=== PATIENT | male | born 1950 | race Caucasian/White ===

== ENCOUNTER → 2023-08-26 11:30 | Outpatient (REF) | payer MEDICARE, OTHER, SELFPAY ==
[2023-08-26 11:52] LABS: Urine Albumin Negative (Neg - Trace); Urine Bilirubin Negative (Negative); Urine Character Slightly Cloudy (Clear); Urine Color Yellow; Urine Glucose Negative (Negative); Urine Ketone Negative (Negative); Urine Leukocyte Trace (Negative); Urine Nitrite Negative (Negative); Urine Occult Blood Negative (Negative); Urine Urobilinogen Negative (Neg - 1+)
[2023-08-26 12:21] LABS: Urine Bacteria Many (Negative); Urine Red Blood Cell 0-2 /HPF (0-2); Urine Squamous Cell 0-2 /LPF (Few)
== END ==
LOC: REG 11:30
PROVIDERS: ATTENDING PHYSICIAN Obstetrics & Gynecology
DX: N30.00 Acute cystitis without hematuria (principal)
CPT/HCPCS: 81003; 81015; 87077; 87086; 87186

== ENCOUNTER → 2023-09-04 | Outpatient (REF) | payer MEDICARE, OTHER, SELFPAY | LOC: DHSLP | PROVIDERS: ATTENDING PHYSICIAN Internal Medicine Critical Care Medicine; FAMILY PHYSICIAN Internal Medicine | DX: G47.33 Obstructive sleep apnea (adult) (pediatric) (principal) | CPT/HCPCS: 95800 ==

== ENCOUNTER → 2023-09-22 10:32 | Outpatient (REF) | payer MEDICARE, OTHER, SELFPAY ==
[2023-09-22 11:47] LABS: Urine Albumin Negative (Neg - Trace); Urine Bilirubin Negative (Negative); Urine Character Clear (Clear); Urine Color Yellow; Urine Glucose Negative (Negative); Urine Ketone Negative (Negative); Urine Leukocyte 1+ (Negative); Urine Nitrite Positive (Negative); Urine Occult Blood Trace (Negative); Urine Urobilinogen Negative (Neg - 1+)
[2023-09-22 12:45] LABS: Urine Bacteria Many (Negative); Urine Red Blood Cell 0-2 /HPF (0-2); Urine Squamous Cell 0-2 /LPF (Few); Urine White Cell 21-25 /HPF (0-5)
== END ==
LOC: REG 10:32
PROVIDERS: ATTENDING PHYSICIAN Obstetrics & Gynecology
DX: N39.0 Urinary tract infection, site not specified (principal)
CPT/HCPCS: 81003; 81015; 87077; 87086; 87186

== ENCOUNTER → 2023-10-05 10:50 | Outpatient (REF) | payer MEDICARE, OTHER, SELFPAY ==
[2023-10-05 13:02] LABS: Urine Albumin Negative (Neg - Trace); Urine Bilirubin Negative (Negative); Urine Character Clear (Clear); Urine Color Yellow; Urine Glucose Negative (Negative); Urine Ketone Negative (Negative); Urine Leukocyte 2+ (Negative); Urine Nitrite Positive (Negative); Urine Occult Blood Negative (Negative); Urine Specific Gravity 1.015 (<1.030); Urine Urobilinogen Negative (Neg - 1+)
[2023-10-05 14:01] LABS: Urine Bacteria Many (Negative); Urine White Cell 80-90 /HPF (0-5)
== END ==
LOC: REG 10:50
PROVIDERS: ATTENDING PHYSICIAN Obstetrics & Gynecology
DX: N39.0 Urinary tract infection, site not specified (principal)
CPT/HCPCS: 81003; 81015; 87077; 87086; 87186

== ENCOUNTER → 2023-10-20 11:20 | Outpatient (REF) | payer MEDICARE, OTHER, SELFPAY ==
[2023-10-20 11:59] LABS: Urine Albumin Negative (Neg - Trace); Urine Bilirubin Negative (Negative); Urine Character Slightly Cloudy (Clear); Urine Color Yellow; Urine Glucose Negative (Negative); Urine Ketone Negative (Negative); Urine Leukocyte 2+ (Negative); Urine Nitrite Negative (Negative); Urine Occult Blood Trace (Negative); Urine Specific Gravity 1.015 (<1.030); Urine Urobilinogen Negative (Neg - 1+)
[2023-10-20 12:11] LABS: Urine Bacteria Few (Negative); Urine Red Blood Cell 0-2 /HPF (0-2); Urine White Cell 16-20 /HPF (0-5)
== END ==
LOC: REG 11:20
PROVIDERS: ATTENDING PHYSICIAN Obstetrics & Gynecology
DX: N39.0 Urinary tract infection, site not specified (principal)
CPT/HCPCS: 81003; 81015; 87077; 87086; 87186

== ENCOUNTER → 2023-10-28 14:45 | Outpatient (REF) | payer MEDICARE, OTHER, SELFPAY | LOC: RCS 14:45 | PROVIDERS: ATTENDING PHYSICIAN Nuclear Medicine Nuclear Cardiology; FAMILY PHYSICIAN Internal Medicine | DX: I48.0 Paroxysmal atrial fibrillation (principal); I34.0 Nonrheumatic mitral (valve) insufficiency; R60.0 Localized edema | CPT/HCPCS: 93306 ==

== ENCOUNTER → 2023-11-03 10:42 | Outpatient (REF) | payer MEDICARE, OTHER, SELFPAY ==
[2023-11-03 11:52] LABS: Urine Albumin Negative (Neg - Trace); Urine Bilirubin Negative (Negative); Urine Character Clear (Clear); Urine Color Yellow; Urine Glucose Negative (Negative); Urine Ketone Negative (Negative); Urine Leukocyte 1+ (Negative); Urine Nitrite Positive (Negative); Urine Occult Blood Negative (Negative); Urine Urobilinogen Negative (Neg - 1+)
[2023-11-03 12:06] LABS: Urine Red Blood Cell 0-2 /HPF (0-2); Urine White Cell 30-40 /HPF (0-5)
[2023-11-03 12:10] LABS: Urine Bacteria Many (Negative)
== END ==
LOC: REG 10:42
PROVIDERS: ATTENDING PHYSICIAN Obstetrics & Gynecology
DX: N39.0 Urinary tract infection, site not specified (principal)
CPT/HCPCS: 81003; 81015; 87086; 87088; 87186

== ENCOUNTER → 2023-11-09 12:31 | Outpatient (REF) | payer MEDICARE, OTHER, SELFPAY ==
[2023-11-09 13:44] LABS: Urine Albumin Negative (Neg - Trace); Urine Bilirubin Negative (Negative); Urine Character Clear (Clear); Urine Color Yellow; Urine Glucose Negative (Negative); Urine Ketone Negative (Negative); Urine Leukocyte 1+ (Negative); Urine Nitrite Negative (Negative); Urine Occult Blood Negative (Negative); Urine Specific Gravity 1.015 (<1.030); Urine Urobilinogen Negative (Neg - 1+)
[2023-11-09 14:52] LABS: Urine Bacteria Many (Negative); Urine White Cell 30-40 /HPF (0-5)
== END ==
LOC: REG 12:31
PROVIDERS: ATTENDING PHYSICIAN Obstetrics & Gynecology
DX: N39.0 Urinary tract infection, site not specified (principal)
CPT/HCPCS: 81003; 81015; 87071; 87086; 87186

== ENCOUNTER → 2023-11-12 16:14 | Outpatient (REF) | payer MEDICARE, OTHER, SELFPAY ==
[2023-11-12 17:31] LABS: % Basophils 0.7 % (0-2); % Immature Granulocytes 0.7 % (0-0.5); % Lymphocytes 14.5 % (20.5-51.1); % Monocytes 7.5 % (1.7-9.3); % Neutrophils 75.6 % (42.2-75.2); Absolute Basophils 0.1 10^3/uL (0-0.2); Absolute Eosinophils 0.1 10^3/uL (0-0.7); Absolute Immature Granulocytes 0.1 10^3/uL (0-0.05); Absolute Lymphocytes 1.8 10^3/uL (1.2-3.4); Absolute Monocytes 0.9 10^3/uL (0.1-0.6); Absolute Neutrophils 9.4 10^3/uL (1.4-6.5); Hematocrit 42.8 % (39.0-52.0); Hemoglobin 13.9 g/dL (13.0-18.0); Mean Corp Hgb Conc. 32.5 g/dL (33.0-37.0); Mean Corpuscular Hgb 28.2 pg (27.0-31.0); Mean Corpuscular Volume 86.8 fL (80.0-94.0); Mean Platelet Volume 9.7 fL (7.4-10.4); Nucleated Red Blood Cells % 0 % (-); Platelet Count 248 10^3/uL (130-400); Red Blood Cell Count 4.93 10^6/uL (4.70-6.10); White Blood Cell Count 12.5 10^3/uL (4.8-10.8)
[2023-11-12 17:39] LABS: Blood Urea Nitrogen 15 mg/dl (9-20); Calcium 9.4 mg/dl (8.4-10.2); Carbon Dioxide 22 mmol/L (22-30); Chloride 107 mmol/L (98-107); Glucose 98 mg/dl (70-99); Sodium 139 mmol/L (135-145); eGFR > 60.00
== END ==
LOC: REG 16:14
PROVIDERS: ATTENDING PHYSICIAN Urology
DX: N31.9 Neuromuscular dysfunction of bladder, unspecified (principal); N39.0 Urinary tract infection, site not specified
CPT/HCPCS: 36415; 80048; 85025

== ENCOUNTER → 2023-11-19 11:37 | Outpatient (REF) | payer MEDICARE, OTHER, SELFPAY ==
[2023-11-19 12:42] LABS: Urine Albumin Negative (Neg - Trace); Urine Bilirubin Negative (Negative); Urine Character Slightly Cloudy (Clear); Urine Color Yellow; Urine Glucose Negative (Negative); Urine Ketone Negative (Negative); Urine Leukocyte 2+ (Negative); Urine Nitrite Negative (Negative); Urine Occult Blood Negative (Negative); Urine Specific Gravity 1.015 (<1.030); Urine Urobilinogen Negative (Neg - 1+)
[2023-11-19 13:05] LABS: Urine Bacteria Few (Negative); Urine Red Blood Cell 0-2 /HPF (0-2); Urine Squamous Cell 0-2 /LPF (Few); Urine White Cell 50-60 /HPF (0-5)
== END ==
LOC: REG 11:37
PROVIDERS: ATTENDING PHYSICIAN Obstetrics & Gynecology
DX: N39.0 Urinary tract infection, site not specified (principal)
CPT/HCPCS: 81003; 81015; 87086

== ENCOUNTER → 2024-01-15 08:54 | Outpatient (REF) | payer MEDICARE, OTHER, SELFPAY ==
[2024-01-15 09:35] LABS: Urine Albumin Negative (Neg - Trace); Urine Bilirubin Negative (Negative); Urine Character Slightly Cloudy (Clear); Urine Color Yellow; Urine Glucose Negative (Negative); Urine Ketone Negative (Negative); Urine Leukocyte 1+ (Negative); Urine Nitrite Positive (Negative); Urine Occult Blood Trace (Negative); Urine Urobilinogen Negative (Neg - 1+)
[2024-01-15 09:57] LABS: Urine Bacteria Many (Negative); Urine White Cell 26-30 /HPF (0-5)
== END ==
LOC: REG 08:54
PROVIDERS: ATTENDING PHYSICIAN Obstetrics & Gynecology
DX: N39.0 Urinary tract infection, site not specified (principal)
CPT/HCPCS: 81003; 81015; 87077; 87086; 87186

== ENCOUNTER → 2024-01-18 11:07 | Outpatient (REF) | payer MEDICARE, OTHER, SELFPAY | LOC: REG 11:07 | PROVIDERS: ATTENDING PHYSICIAN Obstetrics & Gynecology | DX: N39.0 Urinary tract infection, site not specified (principal) | CPT/HCPCS: 87086 ==

== ENCOUNTER → 2024-01-19 08:11 | Outpatient (REF) | payer MEDICARE, OTHER, SELFPAY ==
[2024-01-19 08:53] LABS: Urine Albumin Negative (Neg - Trace); Urine Bilirubin Negative (Negative); Urine Character Clear (Clear); Urine Color Yellow; Urine Glucose Negative (Negative); Urine Ketone Negative (Negative); Urine Leukocyte 1+ (Negative); Urine Nitrite Positive (Negative); Urine Occult Blood Negative (Negative); Urine Specific Gravity 1.015 (<1.030); Urine Urobilinogen Negative (Neg - 1+)
[2024-01-19 10:48] LABS: Urine Bacteria Many (Negative); Urine Red Blood Cell None Seen /HPF (0-2)
== END ==
LOC: REG 08:11
PROVIDERS: ATTENDING PHYSICIAN Obstetrics & Gynecology
DX: N39.0 Urinary tract infection, site not specified (principal)
CPT/HCPCS: 81003; 81015; 87077; 87086

== ENCOUNTER → 2024-01-27 12:00 | Outpatient (REF) | payer MEDICARE, OTHER, SELFPAY ==
[2024-01-27 20:47] LABS: Urine Albumin Negative (Neg - Trace); Urine Bilirubin Negative (Negative); Urine Character Clear (Clear); Urine Color Yellow; Urine Glucose Negative (Negative); Urine Ketone Negative (Negative); Urine Leukocyte 2+ (Negative); Urine Nitrite Positive (Negative); Urine Occult Blood Negative (Negative); Urine Specific Gravity 1.015 (<1.030); Urine Urobilinogen Negative (Neg - 1+)
[2024-01-27 20:59] LABS: Urine Bacteria Many (Negative); Urine Calcium Oxalate Crystals Present; Urine Red Blood Cell 0-2 /HPF (0-2); Urine White Cell 26-30 /HPF (0-5)
== END ==
LOC: REG 12:00
PROVIDERS: ATTENDING PHYSICIAN Obstetrics & Gynecology
DX: N39.0 Urinary tract infection, site not specified (principal)
CPT/HCPCS: 81003; 81015; 87077; 87086; 87186

== ENCOUNTER → 2024-02-25 11:20 | Outpatient (REF) | payer MEDICARE, OTHER, SELFPAY ==
[2024-02-25 12:17] LABS: % Basophils 0.8 % (0-2); % Eosinophils 2.3 % (0-6); % Immature Granulocytes 1.4 % (0-0.5); % Lymphocytes 19.8 % (20.5-51.1); % Monocytes 7.5 % (1.7-9.3); % Neutrophils 68.2 % (42.2-75.2); Absolute Basophils 0.1 10^3/uL (0-0.2); Absolute Eosinophils 0.2 10^3/uL (0-0.7); Absolute Immature Granulocytes 0.1 10^3/uL (0-0.05); Absolute Lymphocytes 1.8 10^3/uL (1.2-3.4); Absolute Monocytes 0.7 10^3/uL (0.1-0.6); Absolute Neutrophils 6.3 10^3/uL (1.4-6.5); Hematocrit 45.8 % (39.0-52.0); Hemoglobin 15.6 g/dL (13.0-18.0); Mean Corp Hgb Conc. 34.1 g/dL (33.0-37.0); Mean Corpuscular Hgb 29.8 pg (27.0-31.0); Mean Corpuscular Volume 87.6 fL (80.0-94.0); Mean Platelet Volume 9.7 fL (7.4-10.4); Nucleated Red Blood Cells % 0 % (-); Platelet Count 252 10^3/uL (130-400); Red Blood Cell Count 5.23 10^6/uL (4.70-6.10); Red Cell Dist. Width 14.2 % (11.5-14.5); White Blood Cell Count 9.2 10^3/uL (4.8-10.8)
[2024-02-25 12:47] LABS: ALT (SGPT) 24 U/L (0-50); AST (SGOT) 22 U/L (17-59); Albumin 4.2 g/dl (3.5-5.0); Alkaline Phosphatase 149 U/L (38-126); Blood Urea Nitrogen 20 mg/dl (9-20); Calcium 9.4 mg/dl (8.4-10.2); Carbon Dioxide 19 mmol/L (22-30); Chloride 108 mmol/L (98-107); Glucose 127 mg/dl (70-99); Potassium 3.9 mmol/L (3.5-5.1); Sodium 143 mmol/L (135-145); Total Bilirubin 0.5 mg/dl (0.2-1.3); Total Protein 6.8 g/dl (6.3-8.2); eGFR > 60.00
[2024-02-25 13:05] LABS: Urine Albumin Negative (Neg - Trace); Urine Bilirubin Negative (Negative); Urine Character Clear (Clear); Urine Color Yellow; Urine Glucose Negative (Negative); Urine Ketone Negative (Negative); Urine Leukocyte Negative (Negative); Urine Nitrite Negative (Negative); Urine Occult Blood Negative (Negative); Urine Urobilinogen Negative (Neg - 1+)
[2024-02-25 13:21] LABS: Glycohemoglobin (HgbA1c) 5.9 % (4.0-5.6)
== END ==
LOC: REG 11:20
PROVIDERS: ATTENDING PHYSICIAN Obstetrics & Gynecology; REFERRING PHYSICIAN Urology
DX: R73.03 Prediabetes (principal); M10.9 Gout, unspecified; E03.9 Hypothyroidism, unspecified; E78.00 Pure hypercholesterolemia, unspecified; N31.9 Neuromuscular dysfunction of bladder, unspecified; N39.0 Urinary tract infection, site not specified
CPT/HCPCS: 36415; 80053; 81003; 83036; 84443; 84550; 85025; 87086

== ENCOUNTER → 2024-04-02 11:28 | Outpatient (REF) | payer MEDICARE, OTHER, SELFPAY ==
[2024-04-02 12:25] LABS: Urine Albumin Negative (Neg - Trace); Urine Bilirubin Negative (Negative); Urine Character Clear (Clear); Urine Color Yellow; Urine Glucose Negative (Negative); Urine Ketone Negative (Negative); Urine Leukocyte 2+ (Negative); Urine Nitrite Negative (Negative); Urine Occult Blood Trace (Negative); Urine Specific Gravity 1.015 (<1.030); Urine Urobilinogen Negative (Neg - 1+)
[2024-04-02 13:19] LABS: Urine Mucus Few; Urine Squamous Cell 0-2 /LPF (Few)
[2024-04-02 13:21] LABS: Urine Amorphous Seen; Urine Bacteria Many (Negative); Urine White Cell 40-50 /HPF (0-5)
== END ==
LOC: REG 11:28
PROVIDERS: ATTENDING PHYSICIAN Obstetrics & Gynecology
DX: N39.0 Urinary tract infection, site not specified (principal)
CPT/HCPCS: 36415; 81003; 81015; 87077; 87086

== ENCOUNTER → 2024-04-12 11:46 | Outpatient (REF) | payer MEDICARE, OTHER, SELFPAY ==
[2024-04-12 17:03] LABS: Urine Albumin Negative (Neg - Trace); Urine Bilirubin Negative (Negative); Urine Character Clear (Clear); Urine Color Yellow; Urine Glucose Negative (Negative); Urine Ketone Negative (Negative); Urine Leukocyte 2+ (Negative); Urine Nitrite Positive (Negative); Urine Occult Blood Negative (Negative); Urine Urobilinogen Negative (Neg - 1+)
[2024-04-12 17:41] LABS: Urine Bacteria Many (Negative); Urine Red Blood Cell 0-2 /HPF (0-2); Urine Squamous Cell 0-2 /LPF (Few); Urine White Cell 70-80 /HPF (0-5)
== END ==
LOC: REG 11:46
PROVIDERS: ATTENDING PHYSICIAN Obstetrics & Gynecology
DX: N39.0 Urinary tract infection, site not specified (principal)
CPT/HCPCS: 81003; 81015; 87077; 87086; 87186

== ENCOUNTER → 2024-05-09 12:06 | Outpatient (REF) | payer MEDICARE, OTHER, SELFPAY ==
[2024-05-09 13:21] LABS: Urine Albumin Negative (Neg - Trace); Urine Bilirubin Negative (Negative); Urine Character Clear (Clear); Urine Color Yellow; Urine Glucose Negative (Negative); Urine Ketone Negative (Negative); Urine Leukocyte 2+ (Negative); Urine Nitrite Positive (Negative); Urine Occult Blood 1+ (Negative); Urine Specific Gravity 1.025 (<1.030); Urine Urobilinogen Negative (Neg - 1+)
[2024-05-09 14:48] LABS: Urine Calcium Oxalate Crystals Present; Urine Urothelial Cell 0-2 /LPF (FEW)
[2024-05-09 14:49] LABS: Urine Bacteria Many (Negative); Urine White Cell 40-50 /HPF (0-5)
== END ==
LOC: REG 12:06
PROVIDERS: ATTENDING PHYSICIAN Obstetrics & Gynecology
DX: N39.0 Urinary tract infection, site not specified (principal)
CPT/HCPCS: 81003; 81015; 87077; 87086; 87186

== ENCOUNTER → 2024-05-18 10:04 | Outpatient (REF) | payer MEDICARE, OTHER, SELFPAY ==
[2024-05-18 11:52] LABS: % Basophils 0.5 % (0-2); % Eosinophils 1.9 % (0-6); % Immature Granulocytes 1.5 % (0-0.5); % Lymphocytes 19.4 % (20.5-51.1); % Monocytes 7.3 % (1.7-9.3); % Neutrophils 69.4 % (42.2-75.2); Absolute Basophils 0.1 10^3/uL (0-0.2); Absolute Eosinophils 0.2 10^3/uL (0-0.7); Absolute Immature Granulocytes 0.1 10^3/uL (0-0.05); Absolute Lymphocytes 1.8 10^3/uL (1.2-3.4); Absolute Monocytes 0.7 10^3/uL (0.1-0.6); Absolute Neutrophils 6.5 10^3/uL (1.4-6.5); Hematocrit 48.9 % (39.0-52.0); Hemoglobin 15.8 g/dL (13.0-18.0); Mean Corp Hgb Conc. 32.3 g/dL (33.0-37.0); Mean Corpuscular Hgb 29.4 pg (27.0-31.0); Mean Corpuscular Volume 91.1 fL (80.0-94.0); Mean Platelet Volume 9.4 fL (7.4-10.4); Nucleated Red Blood Cells % 0 % (-); Platelet Count 262 10^3/uL (130-400); Red Blood Cell Count 5.37 10^6/uL (4.70-6.10); Red Cell Dist. Width 14.5 % (11.5-14.5); Urine Albumin Negative (Neg - Trace); Urine Bilirubin Negative (Negative); Urine Character Clear (Clear); Urine Color Yellow; Urine Glucose Negative (Negative); Urine Ketone Negative (Negative); Urine Leukocyte 1+ (Negative); Urine Nitrite Positive (Negative); Urine Occult Blood Trace (Negative); Urine Specific Gravity 1.015 (<1.030); Urine Urobilinogen Negative (Neg - 1+); White Blood Cell Count 9.3 10^3/uL (4.8-10.8)
[2024-05-18 12:02] LABS: Urine Bacteria Many (Negative); Urine White Cell 40-50 /HPF (0-5)
[2024-05-18 13:08] LABS: ALT (SGPT) 27 U/L (0-50); AST (SGOT) 24 U/L (17-59); Albumin 4.7 g/dl (3.5-5.0); Alkaline Phosphatase 130 U/L (38-126); Blood Urea Nitrogen 21 mg/dl (9-20); Calcium 9.6 mg/dl (8.4-10.2); Carbon Dioxide 25 mmol/L (22-30); Chloride 104 mmol/L (98-107); Glucose 97 mg/dl (70-99); HDL Cholesterol 41 mg/dl; LDL Cholesterol, Calculated 119 mg/dl; Potassium 4.5 mmol/L (3.5-5.1); Sodium 142 mmol/L (135-145); Total Cholesterol 186 mg/dl (50-199); Total Protein 7.7 g/dl (6.3-8.2); Triglyceride 133 mg/dl (10-149); Uric Acid 4.8 mg/dl (3.5-8.5); Very Low Density Lipoprotein 26 mg/dl (0-30); eGFR > 60.00
[2024-05-18 14:49] LABS: Glycohemoglobin (HgbA1c) 5.8 % (4.0-5.6)
== END ==
LOC: RCS 10:04
PROVIDERS: ATTENDING PHYSICIAN Nurse Practitioner Family; REFERRING PHYSICIAN Obstetrics & Gynecology
DX: N32.81 Overactive bladder (principal); M10.9 Gout, unspecified; E78.5 Hyperlipidemia, unspecified; N31.9 Neuromuscular dysfunction of bladder, unspecified; Z86.79 Personal history of other diseases of the circulatory system; J44.9 Chronic obstructive pulmonary disease, unspecified; K21.9 Gastro-esophageal reflux disease without esophagitis; E03.9 Hypothyroidism, unspecified; M10.40 Other secondary gout, unspecified site; R73.03 Prediabetes; N39.0 Urinary tract infection, site not specified
CPT/HCPCS: 36415; 80053; 80061; 81003; 81015; 83036; 84443; 84550; 85025; 87077; 87086; 87186; 93005

== ENCOUNTER → 2024-05-25 11:27 | Outpatient (REF) | payer MEDICARE, OTHER, SELFPAY ==
[2024-05-25 13:20] LABS: Urine Albumin Negative (Neg - Trace); Urine Bilirubin Negative (Negative); Urine Character Clear (Clear); Urine Color Yellow; Urine Glucose Negative (Negative); Urine Ketone Negative (Negative); Urine Leukocyte Negative (Negative); Urine Nitrite Negative (Negative); Urine Occult Blood Negative (Negative); Urine Specific Gravity 1.015 (<1.030); Urine Urobilinogen Negative (Neg - 1+)
== END ==
LOC: REG 11:27
PROVIDERS: ATTENDING PHYSICIAN Obstetrics & Gynecology
DX: N39.0 Urinary tract infection, site not specified (principal)
CPT/HCPCS: 81003

== ENCOUNTER → 2024-06-08 10:43 | Outpatient (REF) | payer MEDICARE, OTHER, SELFPAY ==
[2024-06-08 11:50] LABS: Urine Albumin Negative (Neg - Trace); Urine Bilirubin Negative (Negative); Urine Character Clear (Clear); Urine Color Yellow; Urine Glucose Negative (Negative); Urine Ketone Negative (Negative); Urine Leukocyte Trace (Negative); Urine Nitrite Positive (Negative); Urine Occult Blood Negative (Negative); Urine Urobilinogen Negative (Neg - 1+)
[2024-06-08 12:05] LABS: Urine Mucus Few; Urine Squamous Cell 0-2 /LPF (Few)
[2024-06-08 12:06] LABS: Urine Bacteria Many (Negative); Urine Red Blood Cell 0-2 /HPF (0-2); Urine White Cell 40-50 /HPF (0-5)
== END ==
LOC: REG 10:43
PROVIDERS: ATTENDING PHYSICIAN Obstetrics & Gynecology; FAMILY PHYSICIAN Internal Medicine
DX: N39.0 Urinary tract infection, site not specified (principal)
CPT/HCPCS: 81003; 81015; 87086; 87088; 87186

== ENCOUNTER → 2024-06-24 15:45 | Outpatient (REF) | payer MEDICARE, OTHER, SELFPAY ==
[2024-06-24 16:35] LABS: Urine Albumin Negative (Neg - Trace); Urine Bilirubin Negative (Negative); Urine Character Slightly Cloudy (Clear); Urine Color Yellow; Urine Glucose Negative (Negative); Urine Ketone Negative (Negative); Urine Leukocyte Trace (Negative); Urine Nitrite Positive (Negative); Urine Occult Blood Trace (Negative); Urine Urobilinogen Negative (Neg - 1+)
[2024-06-24 16:46] LABS: Urine Red Blood Cell 0-2 /HPF (0-2); Urine White Cell 26-30 /HPF (0-5)
[2024-06-24 16:47] LABS: Urine Bacteria Moderate (Negative)
== END ==
LOC: REG 15:45
PROVIDERS: ATTENDING PHYSICIAN Obstetrics & Gynecology
DX: N39.0 Urinary tract infection, site not specified (principal)
CPT/HCPCS: 81003; 81015; 87077; 87086; 87186

== ENCOUNTER → 2024-07-04 14:00 | Outpatient (REF) | payer MEDICARE, OTHER, SELFPAY ==
[2024-07-04 15:13] LABS: Urine Albumin Trace (Neg - Trace); Urine Bilirubin Negative (Negative); Urine Character Clear (Clear); Urine Color Yellow; Urine Glucose Negative (Negative); Urine Ketone Negative (Negative); Urine Leukocyte Trace (Negative); Urine Nitrite Positive (Negative); Urine Occult Blood Negative (Negative); Urine Urobilinogen Negative (Neg - 1+)
[2024-07-04 15:26] LABS: Urine Squamous Cell 0-2 /LPF (Few)
[2024-07-04 15:28] LABS: Urine Bacteria Many (Negative); Urine Red Blood Cell 0-2 /HPF (0-2); Urine White Cell 30-40 /HPF (0-5)
== END ==
LOC: REG 14:00
PROVIDERS: ATTENDING PHYSICIAN Obstetrics & Gynecology
DX: N39.0 Urinary tract infection, site not specified (principal)
CPT/HCPCS: 81003; 81015; 87077; 87086; 87186

== ENCOUNTER → 2024-07-30 07:10 | Outpatient (REF) | payer MEDICARE, OTHER, SELFPAY ==
[2024-07-30 08:31] LABS: Urine Albumin Negative (Neg - Trace); Urine Bilirubin Negative (Negative); Urine Character Clear (Clear); Urine Color Yellow; Urine Glucose Negative (Negative); Urine Ketone Negative (Negative); Urine Leukocyte 2+ (Negative); Urine Nitrite Negative (Negative); Urine Occult Blood Negative (Negative); Urine Urobilinogen Negative (Neg - 1+)
[2024-07-30 08:47] LABS: Urine Bacteria Moderate (Negative); Urine Red Blood Cell 0-2 /HPF (0-2); Urine Squamous Cell 0-2 /LPF (Few); Urine White Cell 26-30 /HPF (0-5)
== END ==
LOC: REG 07:10
PROVIDERS: ATTENDING PHYSICIAN Obstetrics & Gynecology
DX: N39.0 Urinary tract infection, site not specified (principal)
CPT/HCPCS: 81003; 81015; 87077; 87086; 87186

== ENCOUNTER → 2024-08-24 14:46 | Outpatient (REF) | payer MEDICARE, OTHER, SELFPAY ==
[2024-08-24 16:07] LABS: Urine Albumin 2+ (Neg - Trace); Urine Bilirubin Negative (Negative); Urine Character Slightly Cloudy (Clear); Urine Color Yellow; Urine Glucose Negative (Negative); Urine Ketone Negative (Negative); Urine Leukocyte 3+ (Negative); Urine Nitrite Negative (Negative); Urine Occult Blood 3+ (Negative); Urine Urobilinogen Negative (Neg - 1+)
[2024-08-24 16:20] LABS: Urine Bacteria Moderate (Negative); Urine Squamous Cell 0-2 /LPF (Few); Urine White Cell >100 /HPF (0-5)
== END ==
LOC: REG 14:46
PROVIDERS: ATTENDING PHYSICIAN Obstetrics & Gynecology
DX: N39.0 Urinary tract infection, site not specified (principal)
CPT/HCPCS: 81003; 81015; 87077; 87086; 87186

== ENCOUNTER → 2024-09-06 15:46 | Outpatient (REF) | payer MEDICARE, OTHER, SELFPAY ==
[2024-09-06 16:42] LABS: Urine Albumin 1+ (Neg - Trace); Urine Bilirubin Negative (Negative); Urine Character Slightly Cloudy (Clear); Urine Color Yellow; Urine Glucose Negative (Negative); Urine Ketone Negative (Negative); Urine Leukocyte 2+ (Negative); Urine Nitrite Positive (Negative); Urine Occult Blood 1+ (Negative); Urine Urobilinogen Negative (Neg - 1+)
[2024-09-06 17:13] LABS: Urine Bacteria Many (Negative); Urine Red Blood Cell 0-2 /HPF (0-2); Urine Squamous Cell 0-2 /LPF (Few); Urine White Cell 26-30 /HPF (0-5)
== END ==
LOC: REG 15:46
PROVIDERS: ATTENDING PHYSICIAN Obstetrics & Gynecology
DX: N39.0 Urinary tract infection, site not specified (principal)
CPT/HCPCS: 81003; 81015; 87077; 87086; 87186

== ENCOUNTER → 2024-09-14 08:26 | Outpatient (REF) | payer MEDICARE, OTHER, SELFPAY | LOC: DHSLP 08:26 | PROVIDERS: ATTENDING PHYSICIAN Internal Medicine Critical Care Medicine; FAMILY PHYSICIAN Internal Medicine | DX: G47.33 Obstructive sleep apnea (adult) (pediatric) (principal) | CPT/HCPCS: 95811 ==

== ENCOUNTER → 2024-11-09 13:20 | Outpatient (REF) | payer MEDICARE, OTHER, SELFPAY ==
[2024-11-09 14:40] LABS: Urine Albumin Negative (Neg - Trace); Urine Bilirubin Negative (Negative); Urine Character Clear (Clear); Urine Color Yellow; Urine Glucose Negative (Negative); Urine Ketone Negative (Negative); Urine Leukocyte 1+ (Negative); Urine Nitrite Negative (Negative); Urine Occult Blood 1+ (Negative); Urine Specific Gravity 1.025 (<1.030); Urine Urobilinogen Negative (Neg - 1+)
[2024-11-09 14:52] LABS: Urine Bacteria Many (Negative); Urine Red Blood Cell 0-2 /HPF (0-2); Urine Squamous Cell 0-2 /LPF (Few)
[2024-11-09 15:31] LABS: PSA, Total - Screen 1.54 ng/ml (0.0-4.0)
== END ==
LOC: REG 13:20
PROVIDERS: ATTENDING PHYSICIAN Obstetrics & Gynecology
DX: N39.0 Urinary tract infection, site not specified (principal); Z12.5 Encounter for screening for malignant neoplasm of prostate
CPT/HCPCS: 36415; 81003; 81015; 87077; 87086; G0103

== ENCOUNTER → 2025-02-02 12:08 | Outpatient (REF) | payer MEDICARE, OTHER, SELFPAY ==
[2025-02-02 14:13] LABS: Urine Character Slightly Cloudy (Clear)
[2025-02-02 14:32] LABS: ALT (SGPT) 21 U/L (0-50); AST (SGOT) 18 U/L (17-59); Albumin 4.4 g/dl (3.5-5.0); Alkaline Phosphatase 114 U/L (38-126); Blood Urea Nitrogen 16 mg/dl (9-20); Calcium 9.2 mg/dl (8.4-10.2); Carbon Dioxide 24 mmol/L (22-30); Chloride 108 mmol/L (98-107); Glucose 94 mg/dl (70-99); Potassium 4.2 mmol/L (3.5-5.1); Sodium 140 mmol/L (135-145); Total Protein 7.0 g/dl (6.3-8.2); Uric Acid 6.0 mg/dl (3.5-8.5); eGFR > 60.00
[2025-02-02 14:34] LABS: Urine Squamous Cell None seen /LPF (Few); Urine White Cell 26-30 /HPF (0-5)
[2025-02-02 14:37] LABS: C-Reactive Protein < 5.00 mg/L (0.0-10.00)
== END ==
LOC: REG 12:08
PROVIDERS: FAMILY PHYSICIAN Obstetrics & Gynecology
DX: M10.00 Idiopathic gout, unspecified site (principal); R73.03 Prediabetes; R19.7 Diarrhea, unspecified; N39.0 Urinary tract infection, site not specified; K22.70 Barrett's esophagus without dysplasia
CPT/HCPCS: 36415; 80053; 81003; 81015; 82784; 83516; 84550; 86140; 86231; 87077; 87086; 87186

== ENCOUNTER → 2025-02-07 13:12 | Outpatient (REF) | payer MEDICARE, OTHER, SELFPAY | LOC: RAD 13:12 | PROVIDERS: ATTENDING PHYSICIAN Internal Medicine Gastroenterology; FAMILY PHYSICIAN Internal Medicine Geriatric Medicine | DX: K52.9 Noninfective gastroenteritis and colitis, unspecified (principal) | CPT/HCPCS: 74177; Q9967 ==

== ENCOUNTER → 2025-03-02 11:31 | Outpatient (REF) | payer MEDICARE, OTHER, SELFPAY ==
[2025-03-03 16:07] LABS: Urine Character Clear (Clear)
[2025-03-03 16:24] LABS: Urine Squamous Cell 0-2 /LPF (Few)
[2025-03-03 16:25] LABS: Urine Red Blood Cell >100 /HPF (0-2)
== END ==
LOC: REG 11:31
PROVIDERS: ATTENDING PHYSICIAN Obstetrics & Gynecology
DX: N39.0 Urinary tract infection, site not specified (principal)
CPT/HCPCS: 81003; 81015; 87086; 87147; 87186

== ENCOUNTER → 2025-03-03 10:00 | Outpatient (REF) | payer MEDICARE, OTHER, SELFPAY ==
[2025-03-03 16:08] LABS: Urine Character Clear (Clear)
[2025-03-03 16:30] LABS: Urine Red Blood Cell >100 /HPF (0-2); Urine Squamous Cell 0-2 /LPF (Few)
== END ==
LOC: REG 10:00
PROVIDERS: ATTENDING PHYSICIAN Obstetrics & Gynecology
DX: N39.0 Urinary tract infection, site not specified (principal)
CPT/HCPCS: 81003; 81015; 87086

== ENCOUNTER → 2025-03-22 11:14 | Outpatient (REF) | payer MEDICARE, OTHER, SELFPAY ==
[2025-03-22 12:20] LABS: Urine Character Clear (Clear)
[2025-03-22 13:18] LABS: Urine Squamous Cell 0-2 /LPF (Few)
[2025-03-22 13:21] LABS: Urine White Cell >100 /HPF (0-5)
[2025-03-22 13:22] LABS: Urine Urothelial Cell 0-2 /LPF (FEW)
== END ==
LOC: REG 11:14
PROVIDERS: ATTENDING PHYSICIAN Obstetrics & Gynecology
DX: N39.0 Urinary tract infection, site not specified (principal)
CPT/HCPCS: 81003; 81015; 87077; 87086; 87186

== ENCOUNTER → 2025-03-24 11:17 | Outpatient (REF) | payer MEDICARE, OTHER, SELFPAY ==
[2025-03-24 12:22] LABS: Urine Character Clear (Clear)
[2025-03-24 12:55] LABS: Urine White Cell >100 /HPF (0-5)
[2025-03-24 12:56] LABS: Urine Red Blood Cell >100 /HPF (0-2)
[2025-03-24 12:57] LABS: Urine Squamous Cell 0-2 /LPF (Few)
== END ==
LOC: REG 11:17
PROVIDERS: ATTENDING PHYSICIAN Obstetrics & Gynecology
DX: N39.0 Urinary tract infection, site not specified (principal)
CPT/HCPCS: 81003; 81015; 87077; 87086; 87186

== ENCOUNTER → 2025-03-28 10:52 | Outpatient (REF) | payer MEDICARE, OTHER, SELFPAY ==
[2025-03-28 12:11] LABS: Urine Character Cloudy (Clear)
[2025-03-28 13:06] LABS: Urine Red Blood Cell >100 /HPF (0-2); Urine Squamous Cell 0-2 /LPF (Few); Urine Urothelial Cell 0-2 /LPF (FEW); Urine White Cell 50-60 /HPF (0-5)
== END ==
LOC: REG 10:52
PROVIDERS: ATTENDING PHYSICIAN Obstetrics & Gynecology
DX: N39.0 Urinary tract infection, site not specified (principal)
CPT/HCPCS: 81003; 81015; 87086; 87088; 87181

== ENCOUNTER → 2025-04-03 07:54 | Outpatient (REF) | payer MEDICARE, OTHER, SELFPAY ==
[2025-04-03 09:17] LABS: Urine Character Slightly Cloudy (Clear)
[2025-04-03 10:08] LABS: Urine Red Blood Cell 30-40 /HPF (0-2); Urine White Cell 16-20 /HPF (0-5)
== END ==
LOC: REG 07:54
PROVIDERS: ATTENDING PHYSICIAN Obstetrics & Gynecology
DX: N39.0 Urinary tract infection, site not specified (principal)
CPT/HCPCS: 81003; 81015; 87077; 87086; 87186

== ENCOUNTER → 2025-04-17 10:31 | Outpatient (REF) | payer MEDICARE, OTHER, SELFPAY ==
[2025-04-17 11:23] LABS: Urine Character Clear (Clear)
[2025-04-17 11:43] LABS: Urine Squamous Cell 0-2 /LPF (Few); Urine White Cell 30-40 /HPF (0-5)
== END ==
LOC: REG 10:31
PROVIDERS: ATTENDING PHYSICIAN Obstetrics & Gynecology
DX: N39.0 Urinary tract infection, site not specified (principal)
CPT/HCPCS: 81003; 81015; 87077; 87086; 87186

== ENCOUNTER → 2025-04-21 09:53 | Outpatient (REF) | payer MEDICARE, OTHER, SELFPAY ==
[2025-04-21 11:51] LABS: Blood Urea Nitrogen 17 mg/dl (9-20); Calcium 9.3 mg/dl (8.4-10.2); Carbon Dioxide 23 mmol/L (22-30); Chloride 109 mmol/L (98-107); Glucose 92 mg/dl (70-99); Potassium 3.9 mmol/L (3.5-5.1); Sodium 142 mmol/L (135-145); eGFR > 60.00
[2025-04-21 14:19] LABS: Hematocrit 41.9 % (39.0-52.0); Hemoglobin 13.8 g/dL (13.0-18.0); Mean Corp Hgb Conc. 32.9 g/dL (33.0-37.0); Mean Corpuscular Volume 87.3 fL (80.0-94.0); Platelet Count 265 10^3/uL (130-400); Red Cell Dist. Width 14.2 % (11.5-14.5)
== END ==
LOC: SDSPAT 09:53
PROVIDERS: ATTENDING PHYSICIAN Surgery; FAMILY PHYSICIAN Internal Medicine
DX: Z01.818 Encounter for other preprocedural examination (principal)
CPT/HCPCS: 36415; 80048; 85027; 93005

== ENCOUNTER → 2025-05-02 09:25 | Outpatient (REF) | payer MEDICARE, OTHER, SELFPAY | LOC: RAD 09:25 | PROVIDERS: ATTENDING PHYSICIAN Surgery; FAMILY PHYSICIAN Internal Medicine | DX: K56.609 Unspecified intestinal obstruction, unspecified as to partial versus complete obstruction (principal) | CPT/HCPCS: 74250 ==

== ENCOUNTER 2025-05-05 06:22 | Day surgery (SDC) | payer MEDICARE, OTHER, SELFPAY ==
[2025-04-21 14:09] VITALS: BMI 29.4
[2025-05-05] VITALS (9 sets, daily range): BP systolic 119–149; BP diastolic 65–89; BMI 29.4
--- NOTE | 2025-05-05 07:04 | HP.FOC2 ---
Focused History & Physical
Chief Complaint
HPI:
Chief Complaint: Intermittent abdominal distention, nausea diarrhea
HPI / Indication for Planned Procedure: Patient is a 74-year-old male previously known to myself after having undergone RAL bilateral inguinal herniorrhaphy with mesh in 2022 and previous history of open umbilical herniorrhaphy with mesh. He has
had intermittent symptoms of abdominal bloating, postprandial cramping, burping and increased gassiness. There is association with occasional nausea and diarrhea.
Hospitalization at outside health system for PSBO versus enteritis. Small bowel capsule endoscopy normal. Upper and lower endoscopy unremarkable.
After our discussions patient wished to pursue diagnostic laparoscopy possible lysis of adhesions in the event that this could potentially have an adhesive source.
Relevant Past Medical History: Other (Hypercholesterolemia, hypothyroidism, atrial fibrillation, psoriasis, neurogenic bladder, gout, neuropathy, LILIA)
Relevant Social History: Negative
Relevant Family History: Negative
Relevant Past Surgical History: Positive for (Robotic bilateral inguinal herniorrhaphy, knee scopes, ablation, cervical laminectomy, epidural abscess, umbilical herniorrhaphy)
Review of Systems
Review of Pertinent Systems: All Systems Negative
Medication
See Medication form for detailed medications: Yes
Medication List (including Herbals & OTC):
atorvastatin 10 mg tablet 10 mg PO QPM High cholesterol 08/11/14
allopurinol 300 mg tablet 300 mg PO DAILY Gout 04/04/20
omeprazole 20 mg capsule,delayed release 20 mg PO HS Gastrointestinal issue 04/04/20
levothyroxine 100 mcg tablet 100 mcg PO DAILY Thyroid 04/19/20
ciprofloxacin HCl 750 mg tablet 750 mg PO DAILY 04/28/25
fluticasone propionate 115 mcg-salmeterol 21 mcg/actuation HFA inhaler (Advair HFA) 2 puff inhalation BID 04/28/25
mirabegron 50 mg tablet,extended release 24 hr (Myrbetriq) 50 mg PO DAILY 04/28/25
tirzepatide (weight loss) 15 mg/0.5 mL subcutaneous solution (Zepbound) 15 mg SC QWEEK 04/28/25
Medications Reviewed: Yes
Allergies and Reactions
Patient has Allergies: Yes
Noted Allergies and Reactions:
Allergy/AdvReac Type Severity Reaction Status Date / Time
No Known Allergies Allergy Verified 04/28/25 09:00
Pertinent Physical Exam
All Other Systems: Negative
Head/Neck: Normal
Lungs: Normal
Heart: Normal
Abdomen: Normal and Other
Extremities: Normal
Neurological: Normal
Diagnosis / Assessment
74-year-old male presenting for diagnostic laparoscopy
Plan / Procedure
Diagnostic laparoscopy, possible lysis of adhesions
Anesthesia/Sedation to be done by Anesthesia Provider: Yes
--- NOTE | 2025-05-05 07:11 | W.SUR.PREOP ---
Pre-Operative Surgical Note
-
I have examined this patient prior to the performance of the scheduled procedure.
The patient's condition is unchanged from the time of the current History and
Physical and the patient is able to undergo the scheduled procedure.
[2025-05-05] MEDS: NORMOSOL-R/PLASMALYTE-A 1000 IV (07:45)
--- NOTE | 2025-05-05 09:15 | W.IMMPOSTOP ---
Addendum entered and electronically signed by Nick Yao MD 05/05/25 09:28:
#[id number]
Original Note:
Surgical Immed Post Op Note
-
Primary Surgeon: Nick Yao MD
Assisting Surgeon: Chetna Peraza PA-C
Pre-op Diagnosis: Intermittent abdominal distention, nausea, intermittent diarrhea
Post-op Diagnosis: Same
Procedure Performed: Diagnostic laparoscopy
Anesthesia Type: GETA +0.25% Marcaine
Specimen / Cultures: None
Estimated Blood Loss: 2 mL
Complications: None immediate
Operative Findings: No abdominal wall adhesions. Normal appendix. No small bowel adhesions. No small bowel abnormality. Normal outward appearance of colon. Sigmoid colon redundancy but no inflammation or thickening. Stomach unremarkable. No
additional findings.
The assistance of Chetna Peraza PA-C was required due to the complexity of the procedure. During the procedure Chetna Peraza PA-C assisted with port placement, managing the laparoscope for visualization, and closure of the surgical incision sites.
I was present for the entirety of the operative procedure.
== END 2025-05-05 11:20 | disposition home or self-care (01) ==
LOC: SDS 06:22
PROVIDERS: ATTENDING PHYSICIAN Surgery
DX: K66.0 Peritoneal adhesions (postprocedural) (postinfection) (principal); Q43.8 Other specified congenital malformations of intestine; Z98.890 Other specified postprocedural states
CPT/HCPCS: 49320

== ENCOUNTER → 2025-05-09 08:19 | Outpatient (REF) | payer MEDICARE, OTHER, SELFPAY ==
[2025-05-09 10:00] LABS: Urine Character Slightly Cloudy (Clear)
[2025-05-09 10:40] LABS: Urine Squamous Cell 0-2 /LPF (Few)
[2025-05-09 10:42] LABS: Urine Red Blood Cell 0-2 /HPF (0-2); Urine White Cell 30-40 /HPF (0-5)
== END ==
LOC: REG 08:19
PROVIDERS: ATTENDING PHYSICIAN Obstetrics & Gynecology
DX: N39.0 Urinary tract infection, site not specified (principal)
CPT/HCPCS: 81003; 81015; 87077; 87086; 87186

== ENCOUNTER → 2025-05-13 07:39 | Outpatient (REF) | payer MEDICARE, OTHER, SELFPAY ==
[2025-05-13 08:44] LABS: Urine Character Slightly Cloudy (Clear)
[2025-05-13 09:39] LABS: Urine Red Blood Cell 0-2 /HPF (0-2); Urine White Cell 26-30 /HPF (0-5)
== END ==
LOC: REG 07:39
PROVIDERS: ATTENDING PHYSICIAN Obstetrics & Gynecology
DX: N39.0 Urinary tract infection, site not specified (principal)
CPT/HCPCS: 81003; 81015; 87086; 87088

== ENCOUNTER → 2025-05-23 06:38 | Outpatient (REF) | payer MEDICARE, OTHER, SELFPAY ==
[2025-05-23 07:23] LABS: Urine Character Clear (Clear)
[2025-05-23 07:31] LABS: Urine Red Blood Cell 0-2 /HPF (0-2); Urine Squamous Cell 0-2 /LPF (Few); Urine White Cell 40-50 /HPF (0-5)
== END ==
LOC: REG 06:38
PROVIDERS: ATTENDING PHYSICIAN Obstetrics & Gynecology
DX: N39.0 Urinary tract infection, site not specified (principal)
CPT/HCPCS: 81003; 81015; 87077; 87086; 87186